=== PATIENT | female | born 1975 | race African-American/Black ===

== ENCOUNTER 2022-07-04 09:37 | Outpatient (CLI) | payer SELFPAY ==
[2022-07-04 14:08] LABS: HIV 1/2/P24 Combo Screen* Negative (Negative)
[2022-07-04 14:29] LABS: Hepatitis C Virus Antibody* Negative (Negative)
[2022-07-04 15:25] LABS: Chlamydia DNA Amplified* NOT DETECTED (No Detected); GC DNA Amplified* NOT DETECTED (No Detected)
[2022-07-05 20:06] LABS: Rapid Plasma Reagin (RPR) Non Reactive (Non Reactive)
== END 2022-07-04 09:38 | disposition home or self-care (01) ==
PROVIDERS: PCP Physician Assistant Medical; Visit Provider Physician Assistant Medical
DX: Z11.3 Encounter for screening for infections with a predominantly sexual mode of transmission (principal)
CPT/HCPCS: 86592; 86703; 86803; 87491; 87591

== ENCOUNTER 2023-02-13 15:42 | Outpatient (CLI) | payer OTHER, SELFPAY | END 2023-02-13 15:43 | disposition home or self-care (01) | PROVIDERS: PCP Physician Assistant Medical; Visit Provider Physician Assistant Medical | DX: Z00.00 Encounter for general adult medical examination without abnormal findings (principal); I10 Essential (primary) hypertension; E04.1 Nontoxic single thyroid nodule | CPT/HCPCS: 82088; 83001; 84244; 84443; 87086 ==